=== PATIENT | female | born 1950 | race Caucasian/White ===

== ENCOUNTER 2016-10-28 08:48 | Outpatient (CLI) | payer MEDICARE, OTHER ==
[2016-10-28 12:18] LABS: BASOPHILS % (AUTO) 1.1 %; EOSINOPHILS # (AUTO) 0.2 10^3/uL (0.0-0.7); EOSINOPHILS % (AUTO) 4.4 %; HCT - HEMATOCRIT 37.8 % (37.0-47.0); HGB - HEMOGLOBIN 12.8 g/dL (12.0-16.0); LYMPHOCYTES # (AUTO) 1.4 10^3/uL (1.5-3.5); LYMPHOCYTES % (AUTO) 36.1 %; MEAN CORPUSCULAR HEMOGLOBIN 29.5 pg (27.0-31.0); MEAN CORPUSCULAR HGB CONC 33.9 g/dL (32.0-36.0); MEAN CORPUSCULAR VOLUME 87.2 fL (81.0-99.0); MEAN PLATELET VOLUME 9.2 fL (7.9-10.8); MONOCYTES # (AUTO) 0.4 10^3/uL (0.0-1.0); MONOCYTES % (AUTO) 9.3 %; NEUTROPHILS # (AUTO) 1.9 10^3/uL (1.5-6.6); NEUTROPHILS % (AUTO) 49.1 %; RED BLOOD COUNT 4.33 10^6/uL (4.20-5.40); RED CELL DISTRIBUTION WIDTH 13.6 % (12.0-15.0); UNCORRECTED WHITE BLOOD COUNT 3.9 x10^3/uL; WHITE BLOOD COUNT 3.9 x10^3/uL (4.8-10.8)
[2016-10-28 12:36] LABS: ALBUMIN/GLOBULIN RATIO 1.7 (1.0-2.2); BILIRUBIN,TOTAL 0.5 mg/dL (0.2-1.0); BUN - BLOOD UREA NITROGEN 14 mg/dL (6-20); CALCIUM 9.3 mg/dL (8.5-10.3); CARBON DIOXIDE - CO2 26 mmol/L (21-32); CHLORIDE 104 mmol/L (101-111); CHOL/HDL RATIO 3.4 (<4.4); CHOLESTEROL 232 mg/dL; CREATININE 0.8 mg/dL (0.4-1.0); GFR - MDRD 72 (>89); GLUCOSE 96 mg/dL (70-100); HDL CHOLESTEROL 69 mg/dL; POTASSIUM 3.8 mmol/L (3.5-5.0); SODIUM 139 mmol/L (135-145); TRIGLYCERIDES 140 mg/dL; VLDL CHOLESTEROL 28 mg/dL
[2016-10-28 13:04] LABS: THYROID STIMULATING HORMONE 3.33 uIU/mL (0.34-5.60)
== END 2016-10-28 08:49 | disposition home or self-care (01) ==
LOC: LAB.R 08:48
PROVIDERS: ATTEND Physician Assistant Medical
DX: Z00.00 Encounter for general adult medical examination without abnormal findings (principal); E78.2 Mixed hyperlipidemia; E55.9 Vitamin D deficiency, unspecified; E53.8 Deficiency of other specified B group vitamins; Z79.899 Other long term (current) drug therapy
CPT/HCPCS: 80053; 80061; 82306; 82607; 84443; 85025

== ENCOUNTER 2016-11-20 07:50 | Outpatient (CLI) | payer MEDICARE, OTHER ==
[2016-11-20] MEDS ORDERED: GADOBUTROL 7.5 MMOL/7.5 ML VIAL IVP ONE (08:37)
--- NOTE | 2016-11-21 03:38 | MRI Report ---
EXAM: MRI BRAIN WITHOUT AND WITH CONTRAST EXAM DATE: 11/20/2016 08:45 AM. CLINICAL HISTORY: PARESTHESIAS, history of melanoma. COMPARISON: None. TECHNIQUE: Multiplanar, multisequence T1-weighted and fluid-sensitive MR sequences of the brain were performed. Sequences optimized for routine evaluation. Other: None. Without and with IV Contrast: 6.5 mL Gadavist. FINDINGS: Parenchyma/Dura: No masses, infarcts, or hemorrhage. The scattered areas of increased T2 signal invol ving the white matter bilateral cerebral hemispheres. Ventricles/Cisterns: There is moderate ventriculomegaly. [place] ratio 0.40. There is no mass effect. N o midline shift. Sinuses: Normal. No sinusitis evident. Bones: Normal. There is no enhancing abnormality. There is normal opacification of the venous sinuses. IMPRESSION: 1. No evidence of infarct, mass, or other acute abnormality. 2. Scattered white matter signal lesions, likely mild microvascular change. 3. Moderate ventriculomegaly. This may reflect central volume loss or NPH. [facility] Referring Provider Line: [phone] SITE ID: [id number]
== END 2016-11-20 07:51 | disposition home or self-care (01) ==
LOC: DI 07:50
PROVIDERS: ATTEND Physician Assistant Medical
DX: G93.89 Other specified disorders of brain (principal)
CPT/HCPCS: 70553; A9585

== ENCOUNTER 2017-05-19 09:15 | Outpatient (CLI) | payer MEDICARE, OTHER ==
--- NOTE | 2017-05-20 13:15 | DEXA Report ---
DEXA SCAN: 05/19/2017 CLINICAL INDICATION: Postmenopausal. TECHNIQUE: Dual energy x-ray absorptiometry (DXA) was performed on a [employer] system. Regions measured are the AP spine, femoral neck, and, if needed, forearm. COMPARISON: None. In accordance with the International Society for Clinical Densitometry (ISCD) guidelines, data from previous exams may be reanalyzed using current recommendations and techniques. This is done to allow a more accurate basis for comparison with the current study. FINDINGS: The data for the lumbar spine is as follows: REGION BMD (g/cm/cm) T-SCORE Z-SCORE L1 1.016 -0.9 0.7 L2 1.049 -1.3 0.4 L3 1.055 -1.2 0.5 L4 1.101 -0.8 0.8 TOTAL 1.058 -1.0 0.7 NOTE: All evaluable vertebrae are used for classification. The data for the hip is as follows: REGION BMD (g/cm/cm) T-SCORE Z-SCORE Neck 0.788 -1.8 -0.2 TOTAL 0.784 -1.8 -0.4 NOTE: The femoral neck or total proximal femur, whichever is lowest, is used for classification. IMPRESSION: THE WHO CLASSIFICATION BASED ON THE INTERNATIONAL REFERENCE STANDARD IS OSTEOPENIA. THE FRACTURE RISK IS INCREASED. RECOMMENDATION: Patients with diagnosis of osteoporosis or osteopenia should have regular bone mineral density assessment. For those eligible for Medicare, routine testing is allowed once every 2 years. Testing frequency can be increased for patients who have rapidly progressing disease or for those who are receiving medical therapy to restore bone mass. COMMENT: World Health Organization (WHO) definitions for osteoporosis and osteopenia: NORMAL BMD: T-score at 1.0 or higher, fracture risk is low. OSTEOPENIA BMD: T-score between 1.0 and -2.5, fracture risk is increased. OSTEOPOROSIS BMD: T-score at 2.5 or lower, fracture risk high. National Osteoporosis Foundation recommends: 1. Obtain adequate dietary calcium (at least 1200 mg per day) and vitamin D (400 -800 international units per day). 2. Participate, as appropriate, in regular weightbearing and muscle- strengthening exercise. 3. Avoid tobacco use and reduce alcohol and caffeine intake. 4. For more detailed information see the website at www.NOF.org. TD: 05/19/2017 12:53 MTDD
== END 2017-05-19 09:16 | disposition home or self-care (01) ==
LOC: DI 09:15
PROVIDERS: ATTEND Physician Assistant Medical
DX: M85.89 Other specified disorders of bone density and structure, multiple sites (principal)
CPT/HCPCS: 77080

== ENCOUNTER 2017-05-19 09:31 | Outpatient (CLI) | payer MEDICARE, OTHER ==
--- NOTE | 2017-05-20 16:48 | Mammography Report ---
DATE OF SERVICE: 05/19/2017 DIGITAL SCREENING MAMMOGRAM: 05/19/2017 CLINICAL INDICATION: A 67-year-old with history of late childbearing, for screening. COMPARISON: 04/2015, 03/2013, 07/2011, 04/2010, 04/2009. TECHNIQUE: Routine CC and MLO projections were obtained of the breasts. Bilateral laterally exaggerated craniocaudal views. FINDINGS: The breasts demonstrate heterogeneously dense fibroglandular parenchyma bilaterally. A few punctate, typically benign calcifications are present. No suspicious masses, clustered microcalcifications, or regions of architectural distortion are identified. IMPRESSION: BENIGN FINDINGS. RECOMMENDATION: ROUTINE ANNUAL SCREENING UNLESS OTHERWISE CLINICALLY INDICATED. BIRADS CATEGORY 2-BENIGN FINDINGS. STANDARD QUALIFYING STATEMENTS: 1. This examination was reviewed with the aid of Computer-Aided Detection (CAD). 2. A negative or benign imaging report should not delay biopsy if clinically suspicious findings are present. Consider surgical consultation if warranted. More than 5% of cancers are not identified by imaging. 3. Dense breasts may obscure an underlying neoplasm. TD: 05/20/2017 16:47
== END 2017-05-19 09:32 | disposition home or self-care (01) ==
LOC: DI 09:31
PROVIDERS: ATTEND Physician Assistant Medical
DX: Z12.31 Encounter for screening mammogram for malignant neoplasm of breast (principal)
CPT/HCPCS: 77067

== ENCOUNTER 2018-09-18 10:00 | Outpatient (CLI) | payer MEDICARE, OTHER ==
--- NOTE | 2018-09-18 14:18 | Mammography Report ---
Reason: SCREENING MAMMO Procedure Date: 09/18/2018 Accession Number: [id number] / [id number] Procedure: [facility] - Screening Mammo w/Blaise CPT Code: FULL RESULT: EXAM: Screening Mammo w/Blaise DATE: 09/18/2018 10:57 AM CLINICAL HISTORY: Screening encounter. History of late childbearing. TECHNIQUE: (B) - Bilateral CC, laterally exaggerated CC, MLO views were obtained. COMPARISON: 05/19/2017 through 05/07/2010. PARENCHYMAL PATTERN: (D) - The breast(s) demonstrate(s) heterogeneously dense fibroglandular parenchyma. FINDINGS: There are no suspicious masses, calcifications, or areas of distortion. IMPRESSION: Negative examination. BI-RADS category 1. RECOMMENDATION: (ANNUAL) - Recommend routine annual screening mammography. BI-RADS CATEGORY: (1) - Negative. STANDARD QUALIFYING STATEMENTS: 1. This examination was not reviewed with the aid of Computer-Aided Detection (CAD). 2. A negative or benign imaging report should not preclude biopsy if clinically suspicious findings are present. 3. Dense breasts may obscure an underlying neoplasm. 4. This examination was reviewed with the aid of 3D breast imaging (tomosynthesis).
== END 2018-09-18 10:01 | disposition home or self-care (01) ==
LOC: DI 10:00
DX: Z12.31 Encounter for screening mammogram for malignant neoplasm of breast (principal)
CPT/HCPCS: 77063; 77067

== ENCOUNTER 2019-02-07 11:15 | Outpatient (CLI) | payer MEDICARE, OTHER ==
--- NOTE | 2019-02-08 10:27 | XRAY Report ---
Reason: FOOT JOINT PAIN,LEFT Procedure Date: 02/07/2019 Accession Number: [id number] / [id number] Procedure: XR - Foot 3 View LT CPT Code: FULL RESULT: EXAM: LEFT FOOT RADIOGRAPHY EXAM DATE: 02/07/2019 11:31 AM. CLINICAL HISTORY: Foot joint pain, left. COMPARISON: XR FOOT COMPLETE MIN 3 VIEWS 01/30/2009 3:30 PM. TECHNIQUE: 3 views. FINDINGS: Bones: Normal. No fractures or bone lesions. Joints: Normal. No subluxations. Soft Tissues: Normal. No soft tissue swelling. IMPRESSION: No focal abnormality detected. Stable exam. [facility]
== END 2019-02-07 11:16 | disposition home or self-care (01) ==
LOC: DI 11:15
PROVIDERS: ATTEND Family Medicine
DX: M79.672 Pain in left foot (principal)

== ENCOUNTER 2019-02-08 10:42 | Outpatient (CLI) | payer MEDICARE, OTHER ==
[2019-02-08 11:05] LABS: BASOPHILS % (AUTO) 0.7 %; EOSINOPHILS # (AUTO) 0.1 10^3/uL (0.0-0.7); EOSINOPHILS % (AUTO) 4.8 %; HGB - HEMOGLOBIN 12.8 g/dL (12.0-16.0); LYMPHOCYTES # (AUTO) 0.9 10^3/uL (1.5-3.5); LYMPHOCYTES % (AUTO) 30.8 %; MEAN CORPUSCULAR HEMOGLOBIN 27.5 pg (27.0-31.0); MEAN CORPUSCULAR HGB CONC 31.5 g/dL (32.0-36.0); MEAN CORPUSCULAR VOLUME 87.1 fL (81.0-99.0); MEAN PLATELET VOLUME 10.8 fL (7.9-10.8); MONOCYTES # (AUTO) 0.2 10^3/uL (0.0-1.0); MONOCYTES % (AUTO) 8.3 %; NEUTROPHILS # (AUTO) 1.6 10^3/uL (1.5-6.6); NEUTROPHILS % (AUTO) 55.1 %; PLT - PLATELET COUNT 218 10^3/uL (130-450); RED BLOOD COUNT 4.66 10^6/uL (4.20-5.40); RED CELL DISTRIBUTION WIDTH 15.7 % (12.0-15.0); WHITE BLOOD COUNT 2.9 x10^3/uL (4.8-10.8)
[2019-02-08 11:24] LABS: ALBUMIN 4.3 g/dL (3.2-5.5); ALBUMIN/GLOBULIN RATIO 1.7 (1.0-2.2); ALKALINE PHOSPHATASE 49 IU/L (42-121); ALT ALANINE AMINOTRANSFERASE 19 IU/L (10-60); AST ASPARTATE AMINOTRANSFERASE 19 IU/L (10-42); BILIRUBIN,TOTAL 0.5 mg/dL (0.2-1.0); BUN - BLOOD UREA NITROGEN 20 mg/dL (6-20); CALCIUM 9.3 mg/dL (8.5-10.3); CARBON DIOXIDE - CO2 31 mmol/L (21-32); CHLORIDE 102 mmol/L (101-111); CHOL/HDL RATIO 3.3 (<4.4); CHOLESTEROL 229 mg/dL; CREATININE 0.8 mg/dL (0.4-1.0); GFR - MDRD 71 (>89); GLUCOSE 94 mg/dL (70-100); HDL CHOLESTEROL 70 mg/dL; LDL CHOLESTEROL,CALCULATED 143 mg/dL; SODIUM 141 mmol/L (135-145); TOTAL PROTEIN 6.9 g/dL (6.7-8.2); VLDL CHOLESTEROL 16 mg/dL
[2019-02-08 11:30] LABS: DIFFERENTIAL COMMENT MANUAL=AUTO DIFF; PLATELET MORPHOLOGY NORMAL APPEARANCE (NORMAL); RBC MORPHOLOGY (MULTIPLE) 1+ HYPOCHROMASIA (NORMAL)
[2019-02-08 11:31] LABS: PLATELET ESTIMATE, MANUAL NORMAL (130-450,000) (NORMAL)
== END 2019-02-08 10:43 | disposition home or self-care (01) ==
LOC: LAB 10:42
PROVIDERS: ATTEND Family Medicine
DX: E55.9 Vitamin D deficiency, unspecified (principal); E78.2 Mixed hyperlipidemia
CPT/HCPCS: 36415; 80053; 80061; 82306; 83721; 85025

== ENCOUNTER 2019-09-05 13:52 | Outpatient (CLI) | payer MEDICARE, OTHER ==
--- NOTE | 2019-09-05 19:53 | XRAY Report ---
Reason: LEFT WRIST PAIN Procedure Date: 09/05/2019 Accession Number: [id number] / [id number] Procedure: WCP - Wrist 3 View LT CPT Code: Final Report FULL RESULT: EXAM: LEFT WRIST RADIOGRAPHY EXAM DATE: 09/05/2019 01:52 PM. CLINICAL HISTORY: Left wrist pain and left thumb pain for 4 months from repetitive lifting. COMPARISON: None. TECHNIQUE: 3 views. FINDINGS: Bones: No acute fracture or bony lesion. Mild degenerative spurring. No bony erosions. Joints: Joint space narrowing of the radiocarpal, intercarpal and first carpometacarpal joints. No dislocation. Soft Tissues: Soft tissue prominence/edema overlying the left distal radius particularly along the radial styloid. No soft tissue calcifications. IMPRESSION: 1. No acute osseous abnormalities. 2. Mild degenerative changes of the left wrist. 3. Soft tissue prominence/edema superficial to the left radial styloid. [facility]
== END 2019-09-05 13:53 | disposition home or self-care (01) ==
LOC: DI.WCP 13:52
PROVIDERS: ATTEND Nurse Practitioner
DX: M19.032 Primary osteoarthritis, left wrist (principal)

== ENCOUNTER 2019-09-24 09:38 | Emergency (ER) | payer MEDICARE, OTHER ==
--- NOTE | 2019-09-24 09:51 | ED Physician Documentation ---
PD HPI CHEST PAIN - Stated complaint Stated Complaint: CHEST PAIN - History obtained from History obtained from: Patient - History of Present Illness Timing - onset: How many hours ago (6) Timing - onset during: Sleep, Rest Timing - duration: Hours (has continued to some degree since onset. She did get back to sleep some) Timing - details: Abrupt onset, Waxing and waning Quality: Aching, Dull Location: Substernal, Epigastric Radiation: No: Jaw, Neck, Back Improved by: Antacids (somewhat). No: Rest Worsened by: No: Inspiration, Movement Associated symptoms: Shortness of air. No: Nausea, Vomiting, Feeling faint / dizzy, General Weakness, Palpitations Similar symptoms before: Has not had sx before Recently seen: Not recently seen Review of Systems Constitutional: denies: Fever, Chills Nose: denies: Rhinorrhea / runny nose, Congestion Throat: denies: Sore throat Respiratory: reports: Dyspnea (while biking a week ago, but then went 26 mile ride yesterday without problems.). denies: Cough GI: denies: Nausea, Vomiting, Diarrhea Skin: denies: Rash, Lesions Musculoskeletal: denies: Neck pain, Back pain, Extremity swelling Neurologic: denies: Generalized weakness, Near syncope PD PAST MEDICAL HISTORY - Past Medical History Cardiovascular: None Respiratory: None Neuro: None Endocrine/Autoimmune: None - Present Medications Home Medications: Ambulatory Orders Medication Instructions Recorded Confirmed Famotidine 20 mg PO DAILY #30 tablet 09/24/19 Lidocaine Viscous 2% [Xylocaine 5 ml PO Q4H PRN #100 ml 09/24/19 Viscous 2%] - Allergies Allergies/Adverse Reactions: Allergies Allergy/AdvReac Type Severity Reaction Status Date / Time No Known Drug Allergies Allergy Verified 09/24/19 10:00 PD ED PE NORMAL - Vitals Vital signs reviewed: Yes - General General: Alert and oriented X 3, No acute distress, Well developed/nourished - HEENT HEENT: Moist mucous membranes, Pharynx benign - Neck Neck: Supple, no meningeal sign, No adenopathy - Cardiac Cardiac: RRR, No murmur - Respiratory Respiratory: Clear bilaterally - Abdomen Abdomen: Soft, Non tender - Derm Derm: Normal color, Warm and dry - Extremities Extremities: Normal ROM s pain, No edema, No calf tenderness / cord - Neuro Neuro: Alert and oriented X 3, No motor deficit, Normal speech Results - Vitals Vitals: Vital Signs - 24 hr 09/24/19 09/24/19 09/24/19 09:57 10:29 11:00 Temperature 36.5 C Heart Rate 59 L 55 L 51 L Respiratory 18 17 14 Rate Blood Pressure 123/61 107/46 L 93/49 L O2 Saturation 100 100 100 09/24/19 09/24/19 11:30 12:00 Temperature 36.1 C L Heart Rate 51 L 55 L Respiratory 18 12 Rate Blood Pressure 107/51 L 114/60 O2 Saturation 100 100 Oxygen O2 Source Room air - EKG (time done) 09:46 Rhythm: NSR [place]: Normal Intervals: Normal [place] QRS: Poor R wave progression Ischemia: Normal ST segments. No: ST elevation c/w ischemia, ST depression - Labs Labs: Laboratory Tests 09/24/19 09/24/19 09/24/19 09:54 09:54 09:54 WBC 3.0 L RBC 4.40 Hgb 12.9 Hct 40.5 MCV 92.0 MCH 29.3 MCHC 31.9 L RDW 14.5 Plt Count 199 MPV 9.6 Neut # (Auto) 1.5 Lymph # (Auto) 1.2 L [place] # (Auto) 0.2 Eos # (Auto) 0.1 Baso # (Auto) 0.0 Absolute Nucleated RBC 0.00 Nucleated RBC % 0.0 Sodium 138 Potassium 4.4 Chloride 98 L Carbon Dioxide 30 Anion Gap 10.0 BUN 17 Creatinine 0.8 Estimated GFR (MDRD) 71 L Glucose 110 H Calcium 9.5 Magnesium 2.2 Total Bilirubin 0.9 AST 24 ALT 27 Alkaline Phosphatase 62 Troponin I High Sens 2.3 B-Natriuretic Peptide Total Protein 7.0 Albumin 4.3 Globulin 2.7 Albumin/Globulin Ratio 1.6 Lipase 49 09/24/19 09:54 WBC RBC Hgb Hct MCV MCH MCHC RDW Plt Count MPV Neut # (Auto) Lymph # (Auto) [place] # (Auto) Eos # (Auto) Baso # (Auto) Absolute Nucleated RBC Nucleated RBC % Sodium Potassium Chloride Carbon Dioxide Anion Gap BUN Creatinine Estimated GFR (MDRD) Glucose Calcium Magnesium Total Bilirubin AST ALT Alkaline Phosphatase Troponin I High Sens B-Natriuretic Peptide 24 Total Protein Albumin Globulin Albumin/Globulin Ratio Lipase - Rads (name of study) chest xray Radiology: Prelim report reviewed, See rad report (normal) PD MEDICAL DECISION MAKING - ED course Complexity details: reviewed results, considered differential (symptoms for 6 hours at rest, with nonischemic ECG and neg troponin. Seems more likely GI. ), d /w patient Departure - Departure Disposition: 01 Home, Self Care Clinical Impression: Chest pain Qualifiers: Chest pain type: precordial pain Qualified Code(s): R07.2 - Precordial pain Clinical Impression: (Ruled Out): Myocardial infarction Condition: Stable Record reviewed to determine appropriate education?: Yes Instructions: ED Chest Pain NonCardiac Follow-Up: Kevon Doshi MD [Primary Care Provider] - Prescriptions: Famotidine 20 mg PO DAILY #30 tablet Lidocaine Viscous 2% [Xylocaine Viscous 2%] 5 ml PO Q4H PRN #100 ml PRN Reason: Pain Comments: Regular diet with exception of avoiding alcohol coffee or spicy foods. Use the famotidine twice daily for several days and then once daily for a few weeks. This is to reduce stomach acids. Add antacid such as Maalox or Mylanta as needed for discomfort and you can add lidocaine with that if needed. Avoid anti-inflammatories such as aspirin ibuprofen and naproxen presuming an irritated esophagus or stomach. Use Tylenol instead for pains every 4-6 hours as needed. Follow-up with your primary care if not improved well over the next few days and return if other symptoms develop. Discharge Date/Time: 09/24/19 12:23
[2019-09-24] MEDS ORDERED: MAG HYDROX/AL HYDROX/SIMETH 30 ML UDC PO STA (10:11)
[2019-09-24] MEDS ORDERED: LIDOCAINE VISCOUS 2% 15 ML UDC MM STA (10:11)
[2019-09-24] MEDS ORDERED: FAMOTIDINE 20 MG TABLET PO STA (10:11)
[2019-09-24 10:18] LABS: BASOPHILS % (AUTO) 0.7 %; EOSINOPHILS # (AUTO) 0.1 10^3/uL (0.0-0.7); HGB - HEMOGLOBIN 12.9 g/dL (12.0-16.0); LYMPHOCYTES # (AUTO) 1.2 10^3/uL (1.5-3.5); LYMPHOCYTES % (AUTO) 38.5 %; MEAN CORPUSCULAR HEMOGLOBIN 29.3 pg (27.0-31.0); MEAN CORPUSCULAR HGB CONC 31.9 g/dL (32.0-36.0); MEAN PLATELET VOLUME 9.6 fL (7.9-10.8); MONOCYTES # (AUTO) 0.2 10^3/uL (0.0-1.0); MONOCYTES % (AUTO) 6.6 %; NEUTROPHILS # (AUTO) 1.5 10^3/uL (1.5-6.6); NEUTROPHILS % (AUTO) 50.2 %; PLT - PLATELET COUNT 199 10^3/uL (130-450); RED CELL DISTRIBUTION WIDTH 14.5 % (12.0-15.0)
--- NOTE | 2019-09-24 10:25 | XRAY Report ---
Reason: Chest pain Procedure Date: 09/24/2019 Accession Number: [id number] / [id number] Procedure: XR - Chest 1 View X-Ray CPT Code: 70913 Final Report FULL RESULT: PROCEDURE: Chest 1 View X-Ray INDICATIONS: Chest pain TECHNIQUE: One view of the chest was acquired. COMPARISON: None FINDINGS: Surgical changes and devices: None. Lungs and pleura: No pleural effusions or pneumothorax. Lungs are clear. Mediastinum: Mediastinal contours appear normal. Heart size is normal. Bones and chest wall: No suspicious bony lesions. Overlying soft tissues appear unremarkable. IMPRESSION: No acute cardiopulmonary disease process. Reviewed by: Ena Stewart MD, PhD on 09/24/2019 10:23 AM PDT Approved by: Ena Stewart MD, PhD on 09/24/2019 10:23 AM PDT Station ID: [id number]
[2019-09-24 10:28] LABS: ALBUMIN 4.3 g/dL (3.2-5.5); ALBUMIN/GLOBULIN RATIO 1.6 (1.0-2.2); BILIRUBIN,TOTAL 0.9 mg/dL (0.2-1.0); CALCIUM 9.5 mg/dL (8.5-10.3); CREATININE 0.8 mg/dL (0.4-1.0); MAGNESIUM 2.2 mg/dL (1.7-2.8)
[2019-09-24] MEDS ORDERED: ACETAMINOPHEN 325 MG TABLET PO STA (11:54)
[2019-09-24 12:23] VITALS: BP 114/60
== END 2019-09-24 12:23 | disposition home or self-care (01) ==
LOC: ED 09:38
DX: R07.2 Precordial pain (principal); R10.13 Epigastric pain
CPT/HCPCS: 36415; 71045; 80053; 83690; 83735; 83880; 84484; 85025; 93005; 99284; A9270

== ENCOUNTER 2020-04-15 19:35 | Outpatient (CLI) | payer MEDICARE, OTHER | END 2020-04-15 19:36 | disposition home or self-care (01) | LOC: COV 19:35 | PROVIDERS: ATTEND Family Medicine | DX: R53.83 Other fatigue (principal); Z20.828 Contact with and (suspected) exposure to other viral communicable diseases; M79.10 Myalgia, unspecified site; R09.81 Nasal congestion; R19.7 Diarrhea, unspecified; R11.2 Nausea with vomiting, unspecified ==

== ENCOUNTER 2021-09-11 08:00 | Outpatient (CLI) | payer MEDICARE, OTHER ==
--- NOTE | 2021-09-11 16:32 | XRAY Report ---
PROCEDURE: Foot 3 View LT INDICATIONS: HEEL PAIN, LEFT TECHNIQUE: 3 views of the foot were acquired. COMPARISON: None FINDINGS: Bones: No fractures or dislocations. No suspicious bony lesions. Small dorsal and plantar calcaneal bone spurs. Soft tissues: No tibiotalar joint effusion. Achilles tendon appears normal. IMPRESSION: Small calcaneal bone spurs. Reviewed by: Ena Stewart MD, PhD on 09/11/2021 4:31 PM PDT Approved by: Ena Stewart MD, PhD on 09/11/2021 4:31 PM PDT Station ID: [id number]
== END 2021-09-11 23:59 | disposition home or self-care (01) ==
LOC: DI.N 08:00
PROVIDERS: ATTEND Physician Assistant
DX: M77.32 Calcaneal spur, left foot (principal)

== ENCOUNTER 2022-02-18 11:47 | Outpatient (CLI) | payer MEDICARE, OTHER ==
[2022-02-18 18:04] LABS: EOSINOPHILS # (AUTO) 0.1 10^3/uL (0.0-0.7); EOSINOPHILS % (AUTO) 4.2 %; HCT - HEMATOCRIT 44.1 % (37.0-47.0); HGB - HEMOGLOBIN 14.1 g/dL (12.0-16.0); LYMPHOCYTES # (AUTO) 0.8 10^3/uL (1.5-3.5); LYMPHOCYTES % (AUTO) 27.1 %; MEAN CORPUSCULAR HEMOGLOBIN 30.1 pg (27.0-31.0); MEAN CORPUSCULAR VOLUME 94.2 fL (81.0-99.0); MEAN PLATELET VOLUME 10.7 fL (7.9-10.8); MONOCYTES # (AUTO) 0.2 10^3/uL (0.0-1.0); MONOCYTES % (AUTO) 5.5 %; NEUTROPHILS # (AUTO) 1.9 10^3/uL (1.5-6.6); NEUTROPHILS % (AUTO) 62.2 %; PLT - PLATELET COUNT 218 10^3/uL (130-450); RED BLOOD COUNT 4.68 10^6/uL (4.20-5.40); RED CELL DISTRIBUTION WIDTH 12.1 % (12.0-15.0); WHITE BLOOD COUNT 3.1 x10^3/uL (4.8-10.8)
[2022-02-18 18:21] LABS: % IRON SATURATION 33 % (20-50); ALBUMIN 4.6 g/dL (3.2-5.5); ALBUMIN/GLOBULIN RATIO 1.8 (1.0-2.2); ALKALINE PHOSPHATASE 56 IU/L (42-121); ALT ALANINE AMINOTRANSFERASE 22 IU/L (10-60); AST ASPARTATE AMINOTRANSFERASE 22 IU/L (10-42); BUN - BLOOD UREA NITROGEN 14 mg/dL (6-20); CALCIUM 9.2 mg/dL (8.5-10.3); CARBON DIOXIDE - CO2 31 mmol/L (21-32); CHLORIDE 102 mmol/L (101-111); CHOL/HDL RATIO 3.5 (<4.4); CHOLESTEROL 282 mg/dL; CREATININE 0.7 mg/dL (0.4-1.0); GFR - MDRD 82 (>89); GLUCOSE 93 mg/dL (70-100); HDL CHOLESTEROL 80 mg/dL; IRON 134 ug/dL (28-170); LDL CHOLESTEROL,CALCULATED 177 mg/dL; LDL/HDL RATIO 2.2 (<4.4); POTASSIUM 4.3 mmol/L (3.5-5.0); SODIUM 139 mmol/L (135-145); TOTAL IRON BINDING CAPACITY 403 ug/dL (250-450); TOTAL PROTEIN 7.1 g/dL (6.7-8.2); TRANSFERRIN 288 mg/dL (192-382); TRIGLYCERIDES 127 mg/dL; VLDL CHOLESTEROL 25 mg/dL
[2022-02-18 18:31] LABS: THYROID STIMULATING HORMONE 1.52 uIU/mL (0.34-5.60)
[2022-02-18 18:33] LABS: FREE T4 (FREE THYROXINE) 0.67 ng/dL (0.58-1.64)
[2022-02-18 18:37] LABS: FERRITIN 20.1 ng/mL (11.0-306.8)
== END 2022-02-18 11:48 | disposition home or self-care (01) ==
LOC: LAB.N 11:47
PROVIDERS: ATTEND Nurse Practitioner
DX: I62.00 Nontraumatic subdural hemorrhage, unspecified (principal); E78.2 Mixed hyperlipidemia; G47.61 Periodic limb movement disorder; E04.1 Nontoxic single thyroid nodule
CPT/HCPCS: 36415; 80053; 80061; 82728; 83540; 83721; 84439; 84443; 84466; 85025

== ENCOUNTER 2022-05-25 07:19 | Outpatient (CLI) | payer MEDICARE, OTHER | END 2022-05-25 07:20 | disposition home or self-care (01) | LOC: LAB 07:19 | DX: Z53.9 Procedure and treatment not carried out, unspecified reason (principal) ==

== ENCOUNTER 2022-05-25 10:30 | Outpatient (CLI) | payer MEDICARE, OTHER ==
--- NOTE | 2022-05-26 11:30 | Mammography Report ---
BILATERAL DIGITAL SCREENING MAMMOGRAM 3D/2D: 05/25/2022 CLINICAL: Routine screening. Comparison is made to exams dated: 09/18/2018 mammogram, 05/19/2017 mammogram, 05/14/2015 mammogram, and 04/12/2013 mammogram - [facility]. Both breasts are heterogeneously dense, which may obscure small masses (category c / 51-75% glandular tissue). No significant masses, calcifications, or other findings are seen in either breast. There has been no significant interval change. IMPRESSION: NEGATIVE There is no mammographic evidence of malignancy. A 1 year screening mammogram is recommended. Based on the Tyrer Cuzick model (a risk assessment model) the patients lifetime risk is 8.5% and her 10 year risk is 6.4%. According to the ACR, ACS, and NCCN guidelines, an annual breast MRI exam dontae g with mammogram is recommended if the patients lifetime risk is 20% or greater. This exam was interpreted at Station ID: [id number]. NOTE: For mammograms, a report in lay terms will be sent to the patient. Approximately 15% of breast malignancies will not be visualized mammographically. In the management of a palpable breast mass, a negative mammogram must not discourage biopsy of a clinically suspicious lesion. Electronically Signed By: Selma cantu/peterson:05/25/2022 17:57:04 ACR BI-RADS Category 1: Negative 3341F PARENCHYMAL PATTERN: (D) - The breast(s) demonstrate(s) heterogeneously dense fibroglandular ayse crenshaw. BI-RADS CATEGORY: (1) - 1 RECOMMENDATION: (ANNUAL) - Recommend routine annual screening mammography. [id number] 1 year screening LATERALITY: (B)
== END 2022-05-25 10:31 | disposition home or self-care (01) ==
LOC: DI.N 10:30
DX: Z12.31 Encounter for screening mammogram for malignant neoplasm of breast (principal)

== ENCOUNTER 2022-06-16 14:59 | Outpatient (CLI) | payer MEDICARE, OTHER ==
[2022-05-25 07:42] LABS: CREATININE 0.7 mg/dL (0.4-1.0)
[2022-06-16] MEDS ORDERED: iohexoL-300 100 ML VIAL ONE (15:09)
--- NOTE | 2022-06-17 11:37 | CT Report ---
PROCEDURE: ABDOMEN W/WO INDICATIONS: PANCREATIC LESION CONTRAST: 100ml Omnipaque 300 TECHNIQUE: 2 phase scanning was performed. After the administration of intravenous contrast, 5 mm thick section s acquired from the diaphragm to the symphysis. 5 mm coronal and sagittal reformats were acquired. For radiation dose reduction, the following was used: automated exposure control, adjustment of mA a nd/or kV according to patient size. COMPARISON: MRI abdomen 03/02/2022. FINDINGS: Image quality: Excellent. Lung bases: Lung bases are clear. Heart size is normal. Liver is normal in size. No focal lesion. Gallbladder is unremarkable. Biliary system is non dilated . Pancreas is normal in morphology. No significant pancreatic cyst. No significant pancreatic ducta l dilatation. No peripancreatic fluid collection. Spleen is normal in size and enhancement. No adren al nodules. Both kidneys demonstrate normal size and enhancement, without hydronephrosis. Nonobstruc ting right kidney stone measuring 0.6 cm. Nonobstructing left kidney stone measuring 0.7 cm. A few co rtical hypodensities which are due to small to further characterize but most likely benign cysts. Nodes and vessels: No retroperitoneal or mesenteric adenopathy by size criteria. Aorta and inferior vena cava are normal in size. Bowel and peritoneum: Unenhanced bowel loops are normal in caliber. Duodenal diverticulum. A few col onic diverticuli. No free fluid or air. Bones: No suspicious bony lesions. No vertebral body compression fractures. Miscellaneous: Tiny fat-containing umbilical hernia. IMPRESSION: 1. No significant pancreatic cyst or ductal dilatation. 2. Bilateral nonobstructing kidney stones. Reviewed by: Bandar Archuleta MD on 06/17/2022 11:36 AM [facility] Approved by: Bandar Archuleta MD on 06/17/2022 11:36 AM [facility] Station ID: [id number]
== END 2022-06-16 15:00 | disposition home or self-care (01) ==
LOC: DI 14:59
PROVIDERS: ATTEND Internal Medicine Gastroenterology
DX: K86.9 Disease of pancreas, unspecified (principal)
CPT/HCPCS: 36415; 74170; 82565; Q9967

== ENCOUNTER 2023-02-21 08:31 | Outpatient (CLI) | payer MEDICARE, OTHER ==
[2023-02-21 12:25] LABS: BASOPHILS % (AUTO) 0.6 %; EOSINOPHILS # (AUTO) 0.1 10^3/uL (0.0-0.7); EOSINOPHILS % (AUTO) 2.8 %; HCT - HEMATOCRIT 41.9 % (37.0-47.0); HGB - HEMOGLOBIN 13.9 g/dL (12.0-16.0); LYMPHOCYTES % (AUTO) 29.3 %; MEAN CORPUSCULAR HEMOGLOBIN 30.7 pg (27.0-31.0); MEAN CORPUSCULAR HGB CONC 33.2 g/dL (32.0-36.0); MEAN CORPUSCULAR VOLUME 92.5 fL (81.0-99.0); MEAN PLATELET VOLUME 10.9 fL (7.9-10.8); MONOCYTES # (AUTO) 0.2 10^3/uL (0.0-1.0); MONOCYTES % (AUTO) 6.5 %; NEUTROPHILS # (AUTO) 2.1 10^3/uL (1.5-6.6); NEUTROPHILS % (AUTO) 60.5 %; PLT - PLATELET COUNT 207 10^3/uL (130-450); RED BLOOD COUNT 4.53 10^6/uL (4.20-5.40); WHITE BLOOD COUNT 3.5 x10^3/uL (4.8-10.8)
[2023-02-21 12:47] LABS: % IRON SATURATION 23 % (20-50); ALBUMIN 4.4 g/dL (3.2-5.5); ALBUMIN/GLOBULIN RATIO 1.8 (1.0-2.2); ALKALINE PHOSPHATASE 49 IU/L (42-121); ALT ALANINE AMINOTRANSFERASE 16 IU/L (10-60); AMYLASE 60 U/L (28-100); AST ASPARTATE AMINOTRANSFERASE 17 IU/L (10-42); BILIRUBIN,TOTAL 0.5 mg/dL (0.2-1.0); BUN - BLOOD UREA NITROGEN 13 mg/dL (6-20); CALCIUM 9.4 mg/dL (8.5-10.3); CARBON DIOXIDE - CO2 33 mmol/L (21-32); CHLORIDE 104 mmol/L (101-111); CHOL/HDL RATIO 4.1 (<4.4); CHOLESTEROL 240 mg/dL; CREATININE 0.8 mg/dL (0.6-1.3); CRP - C-REACTIVE PROTEIN < 0.5 mg/dL (<0.5); GFR - MDRD 70 (>89); GLUCOSE 94 mg/dL (74-104); HDL CHOLESTEROL 59 mg/dL; IRON 73 ug/dL (50-212); LDL CHOLESTEROL,CALCULATED 142 mg/dL; LDL/HDL RATIO 2.4 (<4.4); LIPASE 27 U/L (11-82); POTASSIUM 4.2 mmol/L (3.5-4.5); SODIUM 140 mmol/L (135-145); TOTAL IRON BINDING CAPACITY 321 ug/dL (250-450); TOTAL PROTEIN 6.8 g/dL (6.4-8.9); TRANSFERRIN 229 mg/dL (203-362); TRIGLYCERIDES 195 mg/dL (48-352); VLDL CHOLESTEROL 39 mg/dL
[2023-02-21 12:54] LABS: THYROID STIMULATING HORMONE 2.19 uIU/mL (0.34-5.60)
== END 2023-02-21 08:32 | disposition home or self-care (01) ==
LOC: LAB.N 08:31
PROVIDERS: ATTEND Nurse Practitioner
DX: Z00.00 Encounter for general adult medical examination without abnormal findings (principal); E78.2 Mixed hyperlipidemia; K86.9 Disease of pancreas, unspecified; E55.9 Vitamin D deficiency, unspecified; G47.61 Periodic limb movement disorder; E04.1 Nontoxic single thyroid nodule
CPT/HCPCS: 36415; 80053; 80061; 82150; 82306; 83540; 83690; 83721; 84443; 84466; 85025; 85651; 86140

== ENCOUNTER 2023-06-06 15:27 | Outpatient (CLI) | payer MEDICARE, OTHER ==
--- NOTE | 2023-06-08 09:30 | Mammography Report ---
BILATERAL DIGITAL SCREENING MAMMOGRAM 3D/2D: 06/06/2023 CLINICAL: Routine screening. Comparison is made to exams dated: 05/25/2022 mammogram, 09/18/2018 mammogram, 05/19/2017 mammogram, 2015 mammogram, and 04/12/2013 mammogram - [facility]. Both breasts are heterogeneously dense, which may obscure small masses (category c / 51-75% glandular tissue). No significant masses, calcifications, or other findings are seen in either breast. There has been no significant interval change. IMPRESSION: NEGATIVE There is no mammographic evidence of malignancy. A 1 year screening mammogram is recommended. Based on the Tyrer Cuzick model (a risk assessment model) the patient's lifetime risk is 8.0% and her 10 year risk is 6.6%. According to the ACR, ACS, and NCCN guidelines, an annual breast MRI exam dontae g with mammogram is recommended if the patient's lifetime risk is 20% or greater. This exam was interpreted at Station ID: [id number]. NOTE: For mammograms, a report in lay terms will be sent to the patient. Approximately 15% of breast malignancies will not be visualized mammographically. In the management of a palpable breast mass, a negative mammogram must not discourage biopsy of a clinically suspicious lesion. Electronically Signed By: Chanda Johnston M.D., PH.D /peterson:06/07/2023 16:43:40 letter sent: No_Letter ACR BI-RADS Category 1: Negative 3341F PARENCHYMAL PATTERN: (D) - The breast(s) demonstrate(s) heterogeneously dense fibroglandular ayse crenshaw. BI-RADS CATEGORY: (1) - 1 Mammogram [id number] 1 year screening LATERALITY: (B)
== END 2023-06-06 15:28 | disposition home or self-care (01) ==
LOC: DI.N 15:27
DX: Z12.31 Encounter for screening mammogram for malignant neoplasm of breast (principal); R92.333 Mammographic heterogeneous density, bilateral breasts

== ENCOUNTER 2023-07-13 12:35 | Outpatient (CLI) | payer MEDICARE, OTHER ==
[2023-07-13 13:05] LABS: CREATININE 0.9 mg/dL (0.6-1.3)
[2023-07-13] MEDS: GADOTERATE MEGLUMINE 7.5 MMOL/15 ML VIAL IVP ONE (15:53)
--- NOTE | 2023-07-14 12:51 | MRI Report ---
PROCEDURE: Abdomen W/WO INDICATIONS: PANCREATIC LESION CONTRAST: Clariscan 12.8ml TECHNIQUE: Coronal ultra fast SE, axial 2D spoiled GE in- and [id number]; axial breath-hold T2 fast SE. Dynam ic axial ultra fast GE during the administration of contrast; post-contrast coronal ultra fast GE or 2D spoiled GE with fat saturation from the hepatic dome to the iliac crests. Optional diffusion weig hted imaging and ADC may be performed. COMPARISON: CT 06/16/2022 FINDINGS: Image quality: Excellent. Lung bases and heart: No basal effusions. No cardiomegaly. Pancreas: Normal size, signal, and morphology. No suspicious enhancement. No ductal dilatation. Class ic ductal anatomy. No peripancreatic inflammation or interstitial edema. Liver: Normal size and signal. Normal enhancement without mass. Gallbladder and biliary tree: No gallstones. Normal wall thickness. No intra or extrahepatic biliary dilatation. Spleen: No splenomegaly. Adrenals: No adrenal nodule. Kidneys and ureters: Left simple cortical renal cyst. Other T2 cortical hyperintensities characterize . Symmetric renal enhancement. No hydronephrosis. No visible hydroureter. Bowel and peritoneum: Stomach and visible small bowel are normal. Visible loops of colon are normal. Lymph nodes: No central or retroperitoneal adenopathy. Vessels Decompressed IVC indicating low volume state. Normal abdominal aorta caliber. Patent portal v ein. Bones: No aggressive osseous abnormality. Other: No significant ventral hernia. IMPRESSION: No visible pancreatic lesion. Low volume state, mild dehydration. Reviewed by: Selma Alcantar MD on 07/14/2023 12:50 PM PDT Approved by: Selma Alcantar MD on 07/14/2023 12:50 PM PDT Station ID: [id number]
== END 2023-07-13 12:36 | disposition home or self-care (01) ==
LOC: LAB 12:35
PROVIDERS: ATTEND Internal Medicine Gastroenterology
DX: Z01.812 Encounter for preprocedural laboratory examination (principal); K86.9 Disease of pancreas, unspecified; Z86.010 Personal history of colon polyps; K59.00 Constipation, unspecified; E86.0 Dehydration
CPT/HCPCS: 36415; 82565